=== PATIENT | female | born 2000 | race Caucasian/White ===

== ENCOUNTER 2020-10-05 17:45 | Outpatient (CLI) | payer OTHER ==
[~2020-10-05] VITALS: Ht 167.6 cm; Wt 74.1 kg
--- NOTE | 2020-10-05 18:00 | NUR ---
Presents to labor and delivery. States having back pain, hip pain. States sometimes feels some in her chest. Assessment done, questions offered and answered. Vag exam done, closed. States has had this before and has taken tylenol for the pain. Says tylenol does not work.
[2020-10-05] MEDS ORDERED: PRENATAL TABLET PO (18:35)
[2020-10-05 18:40] VITALS: BP 110/64; PULSE 104
--- NOTE | 2020-10-05 18:40 | NUR ---
184 PT REPORT RECEIVED FROM Ashlee RUIZ RN. SVE DONE BY RENAN VALENCIA AND STATED CERVIX CLOSED. EFM ON. NO CONTRACTIONS. PT C/O UPPER BACK PAIN BETWEEN SHOULDER BLADES THAT STARTED AN HOUR AGO WITH PAIN SOMETIMES SHOOTING TOWARDS HER SHOULDERS OR UNDER HER BREAST. STATES HAD THIS PAIN BEFORE AND IT LASTED ABOUT TWO HOURS AND HER RUBBED HER SHOULDERS AND IT WENT AWAY. TOLD DR AT [facility] ABOUT THIS PAIN AND THEY DID NOTHING SO SHE CAME HERE TO HAVE IT CHECKED OUT. 1842 DR SINGH NOTIFIED OF PT AND COMPLAINT. ORDER RECEIVED 1854 FLEXERIL 10 MG PO GIVEN. DISMISS INSTRUCTIONS GIVEN. 1914 HOME WITH INSTRUCTIONS.
== END 2020-10-05 19:15 | disposition home or self-care (01) ==
LOC: LDRO 17:45
DX: O26.893 Other specified pregnancy related conditions, third trimester (principal); M54.9 Dorsalgia, unspecified; Z3A.36 36 weeks gestation of pregnancy